=== PATIENT | male | born 1965 | race Caucasian/White ===

== ENCOUNTER 2017-06-10 12:35 | Observation (INO) | payer OTHER ==
[~2017-06-10] VITALS: Ht 170.2 cm; Wt 100.9 kg
[~2017-06-10 12:35] MED LIST: ALTACE 10MG TAB10 MG PO; CIPRO 500MG TA500 MG PO; CIPRO500 MG PO; CLEOCIN HCL300 MG; FARXIGA10 PO; FLAGYL500 MG PO; GLUCOPHAGE1000 MG PO; GLUCOPHAGE500 MG/TAB; MAXZIDE-25MG TA1 TAB PO; MOBIC15 MG PO; NORCO 325 MG-51 TAB PO; NORCO 325 MG-7.1 TAB PO; OXY IR5 MG PO; TRIAMTERENE/HCT1 TAB PO; VERAPAMIL HCL240 MG PO; VERAPAMIL240 MG/TAB PO; ZOCOR 40MG40 MG PO
[2017-06-10] MEDS ORDERED: BYDUREON PEN2 MG SQ (12:41)
[2017-06-10] MEDS ORDERED: JANUVIA25 MG PO (12:42)
[2017-06-10 13:18] LABS: PH 6 (5-8); SQUAMOUS EPITHELIAL None Seen /hpf; URINE APPEARANCE Clear; URINE BACTERIA None Seen /hpf; URINE BILIRUBIN Negative (NEGATIVE); URINE BLOOD 1+ (NEGATIVE); URINE COLOR Yellow; URINE GLUCOSE 3+ (NEGATIVE); URINE KETONE Negative (NEGATIVE); URINE UROBILINOGEN Negative (NEGATIVE); URINE WBC 0-2 /hpf
[2017-06-10 13:37] LABS: HEMATOCRIT 48.7 % (42.0-52.0); HEMOGLOBIN 16.9 g/dl (13.5-18.0); MEAN CELL VOLUME 82 fl (80.0-100.0); MEAN CORPUSCULAR HEMOGLOBIN 29 pg (27.0-31.0); MEAN CORPUSCULAR HGB CONC 35 g/dl (33.0-37.0); MEAN PLATELET VOLUME 10.3 fl (7.4-10.4); PLATELET COUNT 395 K/mm3 (130-400); RED BLOOD COUNT 5.93 M/mm3 (4.20-5.60); WHITE BLOOD COUNT 15.5 K/mm3 (4.8-10.8)
[2017-06-10 13:42] LABS: ADD PATHOLOGY DIFF REVIEW NO
[2017-06-10 13:51] LABS: ADJUSTED CALCIUM 8.7 mg/dL (8.4-10.2); ALBUMIN 4.6 gm/dL (3.5-5.0); BILIRUBIN,TOTAL 1.6 mg/dL (0.0-1.0); CALCIUM 9.2 mg/dL (8.4-10.2); CREATININE, serum 0.52 mg/dL (0.66-1.25); POTASSIUM 3.5 mmol/L (3.4-5.0); TOTAL PROTEIN 7.7 gm/dL (6.4-8.2)
[2017-06-10 13:55] LABS: PROTHROMBIN TIME 11.1 SECONDS (9.7-12.8)
[2017-06-10 13:56] LABS: BAND 8 % (0-10); EOSINOPHIL 1 % (0-4); NEUTROPHILS 69 % (42.0-75.2); TOTAL CELLS COUNTED 100
[2017-06-10 13:57] LABS: PLATELET ESTIMATE NORMAL (NORMAL)
[2017-06-10 13:58] LABS: PARTIAL THROMBOPLASTIN TIME 30.8 SECONDS (26.0-37.0)
[2017-06-10 14:08] LABS: LIPASE 35 U/L (23-300)
[2017-06-10 14:21] LABS: TROPONIN-I < 0.012 ng/mL (0.000-0.034)
[2017-06-10 16:49] VITALS: BP 151/97; PULSE 118; TEMP 98.1
[2017-06-10 20:00] VITALS: BP 133/75; PULSE 102; TEMP 98
[2017-06-11 02:32] VITALS: BP 134/77; PULSE 87; TEMP 98.2
[2017-06-11 05:51] VITALS: BP 133/82; PULSE 88; TEMP 98.5
[2017-06-11 07:07] LABS: HEMATOCRIT 42.3 % (42.0-52.0); MEAN CELL VOLUME 84 fl (80.0-100.0); MEAN CORPUSCULAR HEMOGLOBIN 29 pg (27.0-31.0); MEAN CORPUSCULAR HGB CONC 35 g/dl (33.0-37.0); MEAN PLATELET VOLUME 10.3 fl (7.4-10.4); PLATELET COUNT 344 K/mm3 (130-400); RED BLOOD COUNT 5.05 M/mm3 (4.20-5.60); REDCELL DISTRIBUTION WIDTH-CV 13.2 % (11.5-14.5); WHITE BLOOD COUNT 9.5 K/mm3 (4.8-10.8)
[2017-06-11 07:08] LABS: HEMOGLOBIN 14.6 g/dl (13.5-18.0)
[2017-06-11 07:19] LABS: CALCIUM 8.2 mg/dL (8.4-10.2); CREATININE, serum 0.51 mg/dL (0.66-1.25); POTASSIUM 3.4 mmol/L (3.4-5.0)
[2017-06-11 09:07] VITALS: BP 148/86; PULSE 95; TEMP 97.9
[2017-06-11 13:48] VITALS: BP 117/66; PULSE 85; TEMP 98
== END 2017-06-11 14:30 | disposition home or self-care (01) ==
LOC: COL.ER 12:35 → SURG 15:08
PROVIDERS: Emergency Medicine; Surgery
DX: R10.9 Unspecified abdominal pain (principal); I10 Essential (primary) hypertension; E11.9 Type 2 diabetes mellitus without complications; E78.5 Hyperlipidemia, unspecified; R10.11 Right upper quadrant pain; Z79.4 Long term (current) use of insulin
CPT/HCPCS: G0378; J1170; J1815; J2543; J2765; J3010; J7030; J7050; Q9967

== ENCOUNTER → 2018-02-27 | Outpatient (CLI) | payer OTHER ==
[~2018-02-27] MED LIST changes: +BYDUREON PEN2 MG SQ; +JANUVIA25 MG PO
== END ==
LOC: SUN.DIA 01-27 09:14
DX: E11.9 Type 2 diabetes mellitus without complications (principal); E78.5 Hyperlipidemia, unspecified; I10 Essential (primary) hypertension; Z68.33 Body mass index [BMI] 33.0-33.9, adult; Z71.3 Dietary counseling and surveillance
CPT/HCPCS: G0108

== ENCOUNTER → 2018-08-06 | Outpatient (CLI) | payer OTHER ==
[~2018-08-06] VITALS: Ht 170.2 cm; Wt 96.3 kg
[~2018-08-06] MED LIST changes: +GLUCOPHAGE500 MG/TAB PO; +LEVSIN0.125 M1 PO; +PRILOSEC 20MG20 MG PO; +TRULICITY1.5 MG/0.5 SQ; +VERELAN240 MG PO
[2018-08-06 05:48] VITALS: BP 143/92; PULSE 98
[2018-08-06 07:30] VITALS: BP 133/84; PULSE 95
[2018-08-06 07:32] VITALS: BP 164/79; PULSE 111
[2018-08-06 07:34] VITALS: BP 140/87; PULSE 111
[2018-08-06 07:35] VITALS: BP 138/83; PULSE 107
[2018-08-06 07:36] VITALS: BP 139/78; PULSE 105
== END ==
LOC: COL.CARD 05:36
DX: R07.9 Chest pain, unspecified (principal)
CPT/HCPCS: A9502; J2785

== ENCOUNTER → 2019-02-22 | Outpatient (CLI) | payer OTHER | LOC: COL.RAD 13:15 | DX: J32.0 Chronic maxillary sinusitis (principal); J34.89 Other specified disorders of nose and nasal sinuses ==

== ENCOUNTER → 2019-06-17 | Outpatient (CLI) | payer OTHER | LOC: DIA.ED 08:27 | DX: E11.9 Type 2 diabetes mellitus without complications (principal); E78.5 Hyperlipidemia, unspecified; I10 Essential (primary) hypertension; E66.9 Obesity, unspecified | CPT/HCPCS: G0108 ==

== ENCOUNTER → 2019-07-01 | Outpatient (CLI) | payer OTHER | LOC: DIA.ED 12:46 | DX: E11.9 Type 2 diabetes mellitus without complications (principal); E78.5 Hyperlipidemia, unspecified; I10 Essential (primary) hypertension; E66.9 Obesity, unspecified | CPT/HCPCS: G0108 ==

== ENCOUNTER → 2019-07-29 | Outpatient (CLI) | payer OTHER | LOC: DIA.ED 12:11 | DX: E11.9 Type 2 diabetes mellitus without complications (principal); E78.5 Hyperlipidemia, unspecified; I10 Essential (primary) hypertension; E66.9 Obesity, unspecified | CPT/HCPCS: G0108 ==

== ENCOUNTER → 2020-06-05 | Outpatient (CLI) | payer OTHER | LOC: COL.RAD 12:21 | DX: M48.02 Spinal stenosis, cervical region (principal); M47.812 Spondylosis without myelopathy or radiculopathy, cervical region ==

== ENCOUNTER → 2020-06-27 | Outpatient (CLI) | payer OTHER | LOC: COL.RAD | DX: M48.02 Spinal stenosis, cervical region (principal); M47.812 Spondylosis without myelopathy or radiculopathy, cervical region; G95.0 Syringomyelia and syringobulbia ==

== ENCOUNTER → 2021-01-10 | Outpatient (CLI) | payer OTHER ==
[~2021-01-10] MED LIST changes: +CYMBALTA 60MG60 MG PO; +NAMENDA 10MG TA10 MG PO; +OZEMPIC1 MG/0.75 SQ; +PLAVIX 75MG TAB75 MG PO; +ROXICODONE 55 MG/TAB PO; +SYNTHROID0.125 MG/T PO; +TYLENOL 500MG500 MG PO; +VESICARE 5MG5 MG PO
== END ==
LOC: MHCPAIN 13:33
DX: M47.812 Spondylosis without myelopathy or radiculopathy, cervical region (principal); M54.2 Cervicalgia; G89.29 Other chronic pain
CPT/HCPCS: G0463

== ENCOUNTER → 2021-02-15 | Outpatient (CLI) | payer OTHER | LOC: COL.RAD 11:17 | DX: M48.061 Spinal stenosis, lumbar region without neurogenic claudication (principal); M51.27 Other intervertebral disc displacement, lumbosacral region ==

== ENCOUNTER 2021-09-10 10:09 | Observation (INO) | payer OTHER ==
[~2021-09-10] VITALS: Ht 170.2 cm; Wt 93.3 kg
[~2021-09-10 10:09] MED LIST changes: -CYMBALTA 60MG60 MG PO; -NAMENDA 10MG TA10 MG PO; -OZEMPIC1 MG/0.75 SQ; -PLAVIX 75MG TAB75 MG PO; -ROXICODONE 55 MG/TAB PO; -SYNTHROID0.125 MG/T PO; -TYLENOL 500MG500 MG PO; -VESICARE 5MG5 MG PO
[2021-09-10 10:39] LABS: BASO # 0.1 K/mm3 (0.0-0.2); BASO % 0.5 % (0.0-2.0); EOS # 0.2 K/mm3 (0.0-0.7); EOS % 1.7 % (0-4.0); GRAN # 9.1 K/mm3 (1.4-6.5); GRAN % 68.2 % (42.2-75.2); HEMATOCRIT 49.6 % (42.0-52.0); HEMOGLOBIN 16.9 g/dl (13.5-18.0); LYMPH # 2.7 K/mm3 (1.2-3.4); LYMPH % 20.5 % (20.0-51.0); MEAN CELL VOLUME 83 fl (80.0-100.0); MEAN CORPUSCULAR HEMOGLOBIN 28 pg (27.0-31.0); MEAN CORPUSCULAR HGB CONC 34 g/dl (33.0-37.0); MEAN PLATELET VOLUME 10.3 fl (7.4-10.4); MONO # 1.1 K/mm3 (0.1-0.6); PLATELET COUNT 383 K/mm3 (130-400); REDCELL DISTRIBUTION WIDTH-CV 12.9 % (11.5-14.5)
[2021-09-10 10:55] LABS: ALBUMIN 4.5 gm/dL (3.5-5.0); BILIRUBIN,TOTAL 1.2 mg/dL (0.2-1.2); CALCIUM 10.1 mg/dL (8.4-10.2); CREATININE, serum 0.78 mg/dL (0.72-1.25); POTASSIUM 3.9 mmol/L (3.5-4.5)
[2021-09-10 14:10] VITALS: BP 125/77; PULSE 103; TEMP 97.9
[2021-09-10] MEDS ORDERED: SYNTHROID0.125 MG/T PO (14:37)
[2021-09-10] MEDS ORDERED: PLAVIX 75MG TAB75 MG PO (14:37)
[2021-09-10] MEDS ORDERED: VESICARE 5MG5 MG PO (14:39)
[2021-09-10] MEDS ORDERED: CYMBALTA 60MG60 MG PO (14:40)
[2021-09-10] MEDS ORDERED: NAMENDA 10MG TA10 MG PO (14:41)
[2021-09-10 14:50] VITALS: BP 152/97; PULSE 106; TEMP 98
--- NOTE | 2021-09-10 14:50 | NUR ---
PT ARRIVED TO THE FLOOR AT 1450. PT IS ALERT AND ORIENTED AND COMPLAINS OF SOME PAIN OF THE LEFT RIBS WHEN LAUGHING OR COUGHING. VITAL SIGNS ARE WNL. PHYSICAL ASSESSMENT COMPLETE. ONLY ABNORMALITIES NOTED WERE BILATERAL DIMISHED SOUNDS IN THE LUNGS AND ABRASIONS ON THE FACE. PT HAS AN IV TO THE RIGHT HAND. HE HAS NO OTHER COMPLAINTS OR NEEDS AT THIS TIME. CALL LIGHT WITHIN REACH.
[2021-09-10] MEDS ORDERED: OZEMPIC1 MG/0.75 SQ (15:04)
[2021-09-10 16:00] VITALS: BP 161/104; PULSE 103; TEMP 97.5
--- NOTE | 2021-09-10 16:35 | NUR ---
AT BEDSIDE, SEE ORDERS.
[2021-09-10 17:24] VITALS: BP 154/100
[2021-09-10 19:48] VITALS: BP 153/89; PULSE 100; TEMP 97.7
--- NOTE | 2021-09-10 21:23 | NUR ---
ALERT ANDOX4. PAIN IN RIBS,BRACING WI PILLOW FOR COMFORT. JOHNNIE GIVEN AND NEEDED PRN TONIGHT. POC DISCUSSED. PM MEDS GIVEN. CALL LIGHT WI REACH.
[2021-09-10 23:18] VITALS: BP 142/80; PULSE 97; TEMP 97.3
[2021-09-11 03:12] VITALS: BP 117/75; PULSE 94; TEMP 97.7
[2021-09-11 06:54] LABS: HEMATOCRIT 45.9 % (42.0-52.0); HEMOGLOBIN 15.1 g/dl (13.5-18.0)
[2021-09-11 07:03] VITALS: BP 148/92; PULSE 104; TEMP 98.1
[2021-09-11] MEDS ORDERED: TYLENOL 500MG500 MG PO (07:59)
[2021-09-11] MEDS ORDERED: ROXICODONE 55 MG/TAB PO (07:59)
--- NOTE | 2021-09-11 09:30 | NUR ---
Patient alert and oriented, answers questions appropriately. See assessment. Lungs decreased in bases, clear in upper lobes. Oxygen at 1l/nc, will attempt to titrate to room air. Encouraged CDB. Abrasions to face, no active bleeding or drainage. No c/o at this time.
--- NOTE | 2021-09-11 09:33 | NUR ---
rodent control worker met with patient to discuss discharge plan. Patient states that he lives in [place] at home alone. Patient reports that he is fully independent with his activitis of daily living and does no utilize any medical supplies to assist with mobility. Patient reports to no O2 needs at home but is currently on 1L at this visit. PCP is and he utilizes [facility] pharmacy with no cost difficulty. Patient reports that he does not have a DPOA-HC established and verbalizs that it would be his father Gonsalo and his sister Lillie Jensen. Patient states that he is not and has no children. Education provided to the patient surround a DPOA-HC and he verbalizes that he does not wish to create one at this time. Per RN- Patient is ambulating with no assistance within the room. Discharge plan: Home
[2021-09-11 11:41] VITALS: BP 123/76; PULSE 105; TEMP 98.1
--- NOTE | 2021-09-11 13:15 | NUR ---
Discharge instructions reviewed with patient, verbalized understanding. Discharged via wheelchair to auto/home with family at 1245.
== END 2021-09-11 12:45 | disposition home or self-care (01) ==
LOC: COL.ER 10:09 → SURG 13:39
PROVIDERS: Nurse Practitioner; ADMIT Surgery
DX: S22.42XA Multiple fractures of ribs, left side, initial encounter for closed fracture (principal); R09.02 Hypoxemia; E11.9 Type 2 diabetes mellitus without complications; I10 Essential (primary) hypertension; Z79.899 Other long term (current) drug therapy; Z79.84 Long term (current) use of oral hypoglycemic drugs; W55.22XA Struck by cow, initial encounter
CPT/HCPCS: G0378; J3010; Q9967

== ENCOUNTER 2021-10-31 11:32 | Outpatient (CLI) | payer OTHER ==
[~2021-10-31] VITALS: Ht 170.2 cm; Wt 95.4 kg
[2021-10-31] VITALS (9 sets, daily range): BP systolic 127–144; BP diastolic 81–90; PULSE 103–112; TEMP 98.5
[~2021-10-31 11:32] MED LIST changes: +CYMBALTA 60MG60 MG PO; +JANUVIA 100MG100 MG PO; -JANUVIA25 MG PO; +NAMENDA 10MG TA10 MG PO; +OZEMPIC1 MG/0.75 SQ; +PLAVIX 75MG TAB75 MG PO; +ROXICODONE 55 MG/TAB PO; +SYNTHROID0.125 MG/T PO; +TYLENOL 500MG500 MG PO; +VESICARE 5MG5 MG PO
[2021-10-31] MEDS ORDERED: ZEBETA10 MG PO (12:02)
[2021-10-31] MEDS ORDERED: GLUCOTROL 5M5 MG/TAB PO (12:03)
[2021-10-31] MEDS ORDERED: CELEBREX 1100 MG/CAP PO (12:03)
[2021-10-31] MEDS ORDERED: PRIL40 PO (12:05)
== END 2021-10-31 14:53 ==
LOC: EUO 11:32
DX: U07.1 COVID-19 (principal); E11.9 Type 2 diabetes mellitus without complications; I51.9 Heart disease, unspecified
CPT/HCPCS: M0247; Q0247